=== PATIENT | female | born 1960 | race Caucasian/White ===

== ENCOUNTER → 2017-02-14 | Outpatient (CLI) | payer BC ==
[~2017-02-14] MED LIST: AMOXICILLIN 8751 TAB PO; CALTRATE 600600 MG PO; CARDI-OMEGA1000 MG PO; FLEXERIL 1010 MG/TAB PO; PAXIL 10MG10 MG PO; PERCOCET 325 MG1 TA2 PO; PREDNISONE20 MG PO; RESTASIS0.05%; ULTRAM 50MG TAB50 MG PO
== END ==
LOC: MC.RAD 07:40
DX: Z12.31 Encounter for screening mammogram for malignant neoplasm of breast (principal)

== ENCOUNTER → 2017-12-16 | Emergency (ER) | payer BC | LOC: COL.ER 14:00 | DX: Z72.9 Problem related to lifestyle, unspecified (principal) ==

== ENCOUNTER → 2018-02-28 | Outpatient (CLI) | payer BC | LOC: MC.RAD 14:36 | DX: Z00.00 Encounter for general adult medical examination without abnormal findings (principal); Z12.31 Encounter for screening mammogram for malignant neoplasm of breast ==

== ENCOUNTER → 2019-04-13 | Outpatient (CLI) | payer BC | LOC: MC.RAD 10:45 | DX: Z12.31 Encounter for screening mammogram for malignant neoplasm of breast (principal) ==

== ENCOUNTER → 2020-04-22 | Outpatient (CLI) | payer BC | LOC: MC.RAD 09:30 | DX: Z12.31 Encounter for screening mammogram for malignant neoplasm of breast (principal) ==

== ENCOUNTER → 2021-05-11 | Outpatient (CLI) | payer BC | LOC: MC.RAD 13:00 | DX: Z12.31 Encounter for screening mammogram for malignant neoplasm of breast (principal) ==

== ENCOUNTER → 2022-07-02 | Outpatient (CLI) | payer BC | LOC: MC.RAD 07:44 | DX: Z12.31 Encounter for screening mammogram for malignant neoplasm of breast (principal) ==

== ENCOUNTER 2023-05-04 19:22 | Emergency (ER) | payer BC ==
[~2023-05-04] VITALS: Ht 170.2 cm; Wt 76.4 kg
[2023-05-04 19:34] VITALS: BP 146/63; TEMP 97.1
[2023-05-04 22:28] VITALS: PULSE 74
== END 2023-05-04 22:29 | disposition home or self-care (01) ==
LOC: COL.ER 19:22
DX: H53.9 Unspecified visual disturbance (principal)

== ENCOUNTER → 2023-08-10 | Outpatient (CLI) | payer BC | LOC: MC.RAD 13:33 | DX: Z12.31 Encounter for screening mammogram for malignant neoplasm of breast (principal) ==

== ENCOUNTER → 2023-10-18 | Outpatient (CLI) | payer BC ==
[~2023-10-18] MED LIST changes: +Iohexol 300 - 10 ML VIAL IV ONE; +Triamcinolone 40 MG/ML 1 ML VIAL IJ ONE
== END ==
LOC: COL.RAD 08:59
DX: M25.551 Pain in right hip (principal)
CPT/HCPCS: J0665; J3301; Q9967